=== PATIENT | female | born 1970 | race Caucasian/White ===

== ENCOUNTER 2019-07-02 15:39 | Observation (INO) | payer BC ==
[~2019-07-02] VITALS: Ht 165.1 cm; Wt 97.5 kg
[2019-07-02] MEDS ORDERED: SODIUM CHLORIDE 0.9% 1000ML 1,000 ML IV STA (16:25)
[2019-07-02] MEDS ORDERED: HYDRALAZINE HCL 20 MG/ML VIAL IV NR ×2 (17:00→19:30)
--- NOTE | 2019-07-02 17:41 | Diagnostic Imaging Report ---
EXAMINATION: Head CT HISTORY: Headache, hypertension COMPARISON: None. TECHNIQUE: Multidetector axial images were obtained without contrast from the foramen magnum to the vertex . The images were reconstructed using brain and bone algorithms. Thin section brain images were reformatted into coronal and sagittal planes. Image quality: Motion/streaking artifact limits the evaluation of the skull base and posterior cranial fossa. Dose modulation, iterative reconstruction, and/or weight based adjustment of the mA/kV was utilized to reduce the radiation dose to as low as reasonably achievable. FINDINGS: Parenchyma: 1. No abnormal densities. 2. No mass or hemorrhage. No CT evidence of acute territorial vascular insult. Extra-axial spaces:No abnormal density. No extra-axial fluid collections Brain volume: Normal for age. Ventricles: No hydrocephalus or displacement. Arteries: No density suggestive of thrombus. Dural sinuses: No abnormal density. Extra-axial spaces: No abnormal density. Foramen magnum: No mass, Chiari malformation, or basilar invagination. Sella: No obvious mass. Paranasal/mastoid sinuses: Partially visualize partial opacification of the left greater than right maxillary sinuses and minimal mucosal thickening of the left sinus. Skull/Scalp: No lytic or blastic lesions. No fractures. IMPRESSION: No intracranial abnormality, particularly no hemorrhage. Partially visualized partial opacification of the paranasal sinuses sinuses. Signed by: Dr. Bel Puri M.D. on 07/02/2019 5:38 PM
--- NOTE | 2019-07-02 17:45 | Diagnostic Imaging Report ---
EXAMINATION: CHEST SINGLE (PORTABLE) INDICATION: ^ERMD ORDER ^[id number] ^1655 ^Y COMPARISON: None FINDINGS: AP view TUBES and LINES: None. LUNGS: Lungs are well inflated. Lungs are clear. There is no evidence of pneumonia or pulmonary edema. PLEURA: No pleural effusion or pneumothorax. HEART AND MEDIASTINUM: The cardiomediastinal silhouette is unremarkable.. BONES AND SOFT TISSUES: No acute osseous lesion. Soft tissues are unremarkable. UPPER ABDOMEN: No free air under the diaphragm. IMPRESSION: No acute thoracic abnormality. Signed by: Dr. Shreya rAce M.D. on 07/02/2019 5:41 PM
[2019-07-02 18:07] LABS: BASOPHILS % 0.5 % (0.0-1.0); EOSINOPHILS # (AUTO) 0.1 (0.0-0.4); EOSINOPHILS % 1.7 % (0.0-6.0); HEMATOCRIT 39.8 % (34.2-44.1); HEMOGLOBIN 12.8 g/dL (12.0-16.0); LYMPHOCYTES # (AUTO) 1.3 (1.0-3.2); LYMPHOCYTES % 19.6 % (18.0-39.1); MEAN CORPUSCULAR HEMOGLOBIN 27.8 pg (28-32); MEAN CORPUSCULAR HGB CONC 32.2 g/dL (31-35); MEAN CORPUSCULAR VOLUME 86.5 fL (81-99); MONOCYTES # (AUTO) 0.8 (0.2-0.8); MONOCYTES % 12.6 % (4.4-11.3); NEUTROPHILS # (AUTO) 4.2 (2.1-6.9); NEUTROPHILS % 65.3 % (38.7-80.0); PLATELET COUNT 248 x10e3/uL (140-360); RED CELL DISTRIBUTION WIDTH 14.9 % (11.7-14.4)
[2019-07-02 18:27] LABS: CLARITY,URINE CLEAR (CLEAR); COLOR,URINE YELLOW (YELLOW)
[2019-07-02 18:28] LABS: BILIRUBIN,URINE NEGATIVE (NEGATIVE); KETONES,URINE NEGATIVE (NEGATIVE); LEUKOCYTE ESTERASE ,URINE NEGATIVE (NEGATIVE); NITRITE,URINE NEGATIVE (NEGATIVE); PROTEIN,URINE DIPSTICK NEGATIVE (NEGATIVE); URINE UROBILINOGEN 0.2 mg/dL (0.2 - 1)
[2019-07-02 18:35] LABS: BACTERIA,URINE FEW /HPF; EPITHELIAL CELLS,URINE FEW /LPF; WBC,URINE (MAN) 0-5 /HPF (0-5)
[2019-07-02 18:56] LABS: ALANINE AMINOTRANSFERASE 14 IU/L (0-55); ALBUMIN 3.6 g/dL (3.5-5.0); ALKALINE PHOSPHATASE 97 IU/L (40-150); ANION GAP 16.5 mmol/L (8-16); BLOOD UREA NITROGEN 11 mg/dL (7-26); BUN/CREATININE RATIO 13 (6-25); CALCIUM 9.6 mg/dL (8.4-10.2); CARBON DIOXIDE 23 mmol/L (22-29); CHLORIDE 102 mmol/L (98-107); CREATINE KINASE 62 IU/L (29-168); CREATININE, SERUM 0.82 mg/dL (0.57-1.11); EST GLOMERULAR FILTRATION RATE > 60 ML/MIN (60-); GLUCOSE 94 mg/dL (74-118); POTASSIUM 3.5 mmol/L (3.5-5.1); SODIUM 138 mmol/L (136-145)
[2019-07-02] MEDS ORDERED: HYDRALAZINE HCL 20 MG/ML VIAL IV PRN (19:30)
[2019-07-02] MEDS: NIFEDIPINE CR 30 MG TAB PO SCH (20:39)
--- NOTE | 2019-07-02 21:10 | NUR ---
SPOKE TO DR. GOMEZ REGARDING PTS STATUS/POC; NEW ORDERS RECEIVED AND ENTERED INTO [facility]
[2019-07-02] MEDS ORDERED: ONDANSETRON HCL INJ 2MG/ML 2ML 2 MG/ML VIAL IV PRN (21:30)
[2019-07-02] MEDS ORDERED: LORAZEPAM 0.5 MG TAB PO PRN (21:30)
[2019-07-02 21:40] VITALS: BP 182/89
--- NOTE | 2019-07-02 21:40 | NUR ---
patient received to room 292 via wheelchair from the emergency room at this time. bp182/89 hr 82 rr 18. patient was medicated for elevated bp in emergency room prior to coming to her room. patient states, " I just took my xanax (home medication) for my anxiety. " patient will go for stat cta chest per orders to r/o PE. patient/ made aware of this. admit assessment/history complete. remains at patients bedside. patient/ instructed to call for assistance when needed.
[2019-07-02 21:55] VITALS: BP 182/89
--- NOTE | 2019-07-02 22:25 | NUR ---
patient out of room for cta chest r/o PE at this time.
[2019-07-02] MEDS: ACETAMINOPHEN 325 MG TAB PO PRN (22:43)
--- NOTE | 2019-07-02 22:43 | NUR ---
patient returned to room from cta chest. patient medicated with tylenol 650mg po for c/o headache 11/26 at this time.
--- NOTE | 2019-07-02 23:15 | Diagnostic Imaging Report ---
EXAM: CTA Chest WITH contrast 07/02/2019 9:17 PM INDICATION: Chest pain COMPARISON: None TECHNIQUE: Chest was scanned utilizing a multidetector helical scanner from the lung apex through the level of the adrenal glands with administration of IV contrast. Coronal and sagittal reformations were obtained. Pulmonary embolism protocol was performed with attention on the pulmonary arteries. IV CONTRAST: 100 mL of Omnipaque 300 COMPLICATIONS: None RADIATION DOSE: Total DLP: 656 mGy*cm Estimated effective dose: (DLP x 0.014 x size factor) mSv CTDIvol has been reviewed. It is below the limits set by the Radiation Protocol Committee (RPC). Dose modulation, iterative reconstruction, and/or weight based adjustment of the mA/kV was utilized to reduce the radiation dose to as low as reasonably achievable. FINDINGS: LINES/ TUBES: None. LUNGS AND AIRWAYS: Mild biapical paraseptal emphysema. The lungs are unremarkable. Airways are normal. PLEURA: The pleural spaces are clear. HEART AND MEDIASTINUM: The thyroid gland is normal. No mediastinal, hilar or axillary lymphadenopathy. The heart is normal in size. There is no pericardial effusion. The main pulmonary artery measures 2.7 cm in diameter, nondilated, and the ascending thoracic aorta measures 3.1 cm in diameter, nondilated. UPPER ABDOMEN: Calcified gallstone within the gallbladder lumen. The gallbladder gallbladder is not overly distended, no pericholecystic fat stranding or wall thickening. Mildly thickened adrenal glands with subtle surrounding fat stranding (series 401 image 71, series 400 image 90). BONES: The visualized bony thorax is within normal limits. Enthesopathic reactive changes in the left greater tuberosity. SOFT TISSUES: Unremarkable. IMPRESSION: Mildly thickened adrenal glands with subtle surrounding fat stranding can be seen in setting of adrenal hemorrhage. Cholelithiasis without acute obstructive cholecystitis. No pulmonary embolism. Signed by: Jake Gillette DO on 07/02/2019 11:11 PM
[2019-07-02 23:19] VITALS: BP 188/91
[2019-07-02] MEDS ORDERED: XANAX0.5 MG PO (23:46)
[2019-07-02] MEDS ORDERED: CARVEDILOL3.125 MG PO (23:46)
[2019-07-02] MEDS ORDERED: TERBINAFINE HC250 MG PO (23:46)
[2019-07-02] MEDS ORDERED: SIMVASTATIN20 MG PO (23:46)
--- NOTE | 2019-07-03 02:30 | NUR ---
second set of cardiac markers collected and sent to lab at this time.
[2019-07-03] MEDS ORDERED: IOPAMIDOL 370 MG/ML 200 ML INFUS..BTL INJ ONE (03:31)
[2019-07-03] MEDS ORDERED: SODIUM CHLORIDE 0.9% 50ML 50 ML ONE (03:31)
[2019-07-03 03:41] LABS: CREATINE KINASE MB 2.3 ng/mL (0-5.0)
[2019-07-03 04:40] VITALS: BP 169/81
[2019-07-03] MEDS: ACETAMINOPHEN 325 MG TAB PO PRN (05:30)
--- NOTE | 2019-07-03 05:30 | NUR ---
bp 169/81 this am. attempted to give patient hydralazine 10mg ivp for elevated bp per orders but patient refuses. patient states, "no i don't want that stuff because it makes me feel really bad. " patient medicated with tylenol 650mg po for c/o headache 11/26.
[2019-07-03 06:35] LABS: BASOPHILS % 0.3 % (0.0-1.0); EOSINOPHILS % 0.4 % (0.0-6.0); HEMATOCRIT 38.5 % (34.2-44.1); HEMOGLOBIN 12.4 g/dL (12.0-16.0); LYMPHOCYTES # (AUTO) 1.2 (1.0-3.2); LYMPHOCYTES % 14.4 % (18.0-39.1); MEAN CORPUSCULAR HEMOGLOBIN 27.6 pg (28-32); MEAN CORPUSCULAR HGB CONC 32.2 g/dL (31-35); MEAN CORPUSCULAR VOLUME 85.6 fL (81-99); MONOCYTES % 11.9 % (4.4-11.3); NEUTROPHILS # (AUTO) 5.8 (2.1-6.9); NEUTROPHILS % 72.6 % (38.7-80.0); PLATELET COUNT 263 x10e3/uL (140-360); RED CELL DISTRIBUTION WIDTH 14.8 % (11.7-14.4)
[2019-07-03 07:15] VITALS: BP 157/82
--- NOTE | 2019-07-03 07:15 | NUR ---
PATIENT BIN BD RESTING WITH NO S/S OF DISTRESS. DENIED PAIN AT THIS TIME. CALL LIGHT AT REACH.
[2019-07-03 08:20] LABS: ALANINE AMINOTRANSFERASE 12 IU/L (0-55); ALBUMIN 3.4 g/dL (3.5-5.0); ALKALINE PHOSPHATASE 88 IU/L (40-150); ANION GAP 13.6 mmol/L (8-16); BLOOD UREA NITROGEN 7 mg/dL (7-26); BUN/CREATININE RATIO 9 (6-25); CALCIUM 9.1 mg/dL (8.4-10.2); CARBON DIOXIDE 23 mmol/L (22-29); CHLORIDE 100 mmol/L (98-107); CREATININE, SERUM 0.74 mg/dL (0.57-1.11); EST GLOMERULAR FILTRATION RATE > 60 ML/MIN (60-); GLUCOSE 112 mg/dL (74-118); POTASSIUM 3.6 mmol/L (3.5-5.1); SODIUM 133 mmol/L (136-145)
[2019-07-03 08:23] VITALS: BP 157/82
[2019-07-03] MEDS: NIFEDIPINE CR 30 MG TAB PO SCH (09:20)
[2019-07-03] MEDS: HYDROCODONE/APAP 5MG-325MG TAB PO PRN ×2 (11:00→21:00)
--- NOTE | 2019-07-03 11:10 | NUR ---
PATIENT C/O GENERALIZED PAIN, MEDICATED ORDERED. WILL CONTINUE TO MONITOR.
[2019-07-03 11:59] LABS: CREATINE KINASE MB 1.7 ng/mL (0-5.0)
[2019-07-03 12:08] VITALS: BP 170/96
[2019-07-03] MEDS: CEFDINIR 300 MG CAP PO SCH (13:14)
--- NOTE | 2019-07-03 15:22 | NUR ---
MD IN TO SEE PATIENT, NEW ORDER RECEIVED.
[2019-07-03 17:27] VITALS: BP 160/83
--- NOTE | 2019-07-03 19:02 | History and Physical ---
CHIEF COMPLAINT: Elevated blood pressure, headaches. HISTORY OF PRESENT ILLNESS: A 49-year-old female, morbidly obese, history of hypertension, and hyperlipidemia, came into the emergency room yesterday with complaints of underlying headaches, dizziness, and elevated blood pressure readings that she noted at home. The patient reports that she has noticed her blood pressure has been elevated for the last several weeks. Of note, she recently went to her primary care physician and was told that her blood pressure was elevated due to recent sickness, but was not prescribed any kind of antihypertensive medications. Of note, several days ago, she noticed her blood pressure is still extremely high even at the local [facility] and she notified her primary care physician and was sent in a prescription for Coreg 6.25 mg twice daily. Despite taking the Coreg, the patient continues to have still elevated blood pressure readings and headaches. The patient came into the ED for further evaluation and management. The patient also reported having some chest pressure in which she described it more pressure. No radiation to the left shoulder or arm. No associated nausea or vomiting. She has never experienced anything like this before. She has never seen a therapist respiratory in the past. The patient was seen and evaluated at bedside on the medical floor. She is currently doing much better after given nifedipine XL last night with much improved blood pressure readings. Ativan was given p.r.n. for anxiety. REVIEW OF SYSTEMS: Pertinent positives: Lightheadedness, dizziness, headaches, elevated blood pressure readings, and chest pain. Pertinent negatives: Denies any palpitation, nausea, vomiting, diarrhea, dysuria, hematuria, frequency, urgency, abdominal pain, shortness of breath, cough, congestion, fever, or any other complaints. The rest of the 14-point review of systems are reviewed with the patient and are negative. ALLERGIES: TO PENICILLINS AND SULFA. HOME MEDICATIONS: Xanax 0.5 mg p.o. b.i.d. p.r.n. for anxiety, Coreg 6.25 mg p.o. b.i.d., simvastatin 20 mg at bedtime, and terbinafine 250 mg daily. PAST MEDICAL HISTORY: Hypertension, hyperlipidemia, and anxiety. PAST SURGICAL HISTORY: Reports none. FAMILY HISTORY: Hypertension and diabetes. SOCIAL HISTORY: No drugs. No alcohol. Does not smoke. Good social support. PHYSICAL EXAMINATION: VITAL SIGNS: Temperature is 97.6, pulse 82, respiratory rate is 22, blood pressure is 170/96, and pulse ox 96% on room air. GENERAL: Not in acute distress. Alert and oriented x3. Cooperative on examination. HEENT: Head; normocephalic, atraumatic. Eyes; pupils are equal, round, and reactive to light bilaterally. Extraocular movements intact bilaterally. Throat; no evidence of erythema or exudates in the posterior pharynx. Has poor dentition. NECK: Supple. Good range of motion. PULMONARY: Clear to auscultation bilaterally. No wheezing, no rales, no rhonchi, no crackles appreciated. CARDIOVASCULAR: Positive S1 and S2. No murmurs, rubs, or gallops appreciated. ABDOMEN: Soft, nondistended, and nontender to palpation. Bowel sounds present. MUSCULOSKELETAL: Strength is 5/5 throughout. No evidence of any muscle deficits on examination. No weakness appreciated. NEUROLOGIC: Cranial nerves II through XII grossly intact. No evidence of any neurological deficits on exam. SKIN: Intact. Warm to touch. Good cap refill. PSYCHIATRIC: Normal affect and mood. EXTREMITIES: No edema. Good range of motion throughout. LABORATORY DATA: Labs show white count 7.9, hemoglobin 12.4, hematocrit is 38.5, and platelets of 263. Chemistry; sodium 133, potassium 3.6, chloride 100, bicarb 23, anion gap of 13, BUN 7, creatinine is 0.74, glucose is 112, and calcium 9.1. AST was 12, ALT 12, and total bilirubin was 0.4. Troponins were negative. BNP 224. Albumin 3.4. Urinalysis negative. MICROBIOLOGY: None. IMAGING STUDIES: Chest x-ray was negative. CT brain, no acute intracranial abnormality. Particularly, no hemorrhage. Chest CTA shows impression, some cholelithiasis without acute obstructive cholecystitis. No pulmonary embolism. IMPRESSION: 1. Hypertension urgency. 2. Headache and dizziness secondary to #1, now improved. 3. Acute sinusitis. 4. Chest pain, likely atypical in nature. PLAN: At this time, the patient was initiated on nifedipine XL 30 mg daily since last night. Her blood pressure seems to have improved. We will adjust her medications accordingly. She already called the pharmacy. Apparently, she cannot afford nifedipine XL. As for her chest pain, troponins have been reviewed and trended found to be negative. Cardiology will come and evaluate her. Her CT imaging is consistent with acute sinusitis in which we will go ahead and start with Augmentin 875 mg p.o. b.i.d. We will go ahead and get labs, lipid panel, A1c, TSH as well. Get a.m. labs with CBC and a chemistry. Lovenox for DVT prophylaxis and encourage ambulation with a heart healthy diet. MD KAMALJIT Jameson/DARSHANA /[id number]
--- NOTE | 2019-07-03 19:22 | Consultation ---
DATE OF CONSULTATION: 07/03/2019 Cardiology Consultation INDICATION: Hypertensive urgency. HISTORY OF PRESENT ILLNESS: Ms. Díaz is a 49-year-old female, who has large amounts of stress stemming from two jobs as well as smoking and drinking, comes in with blood pressure in excess of 180. She recently saw her primary care physician, Dr. Raquel Hernandez. She was prescribed hypertensive medications; however, her blood pressure remained elevated. She comes into the emergency room. Cardiac enzymes, labs are normal. EKG is normal. CT scan of the brain and chest was normal. She is admitted for observation. Blood pressure currently is 170/96, as low as 157/82. PAST MEDICAL HISTORY: None. ALLERGIES: DRUG ALLERGIES, PENICILLIN, SULFONAMIDES. SOCIAL HISTORY: The patient is a online publisher, part-time, drinks as well as smokes. REVIEW OF SYSTEMS: Negative except as dictated in the history of present illness. PHYSICAL EXAMINATION: VITAL SIGNS: Afebrile. Heart rate 78, blood pressure is 178/70. CARDIOVASCULAR: Regular rhythm. No S4 gallop. No murmurs. LUNGS: Clear to auscultation bilaterally. ABDOMEN: Soft. Bowel sounds are adequate. EXTREMITIES: No edema. LABORATORY DATA: Hemoglobin 12.4. Cardiac enzymes are negative. BNP is 224. Serum creatinine is normal. ASSESSMENT: Hypertensive urgency. RECOMMENDATIONS: Further workup in the office. Antihypertensive medication prescribed to the patient. Smoking cessation, alcohol limitation also recommended. We will follow her closely in the office. I thank, Dr. Bauer, for this consultation. MD REJI Ceballos/DARSHANA /[id number]
[2019-07-03 20:00] VITALS: BP 149/86
--- NOTE | 2019-07-03 20:00 | NUR ---
INITIAL ASSESSMENT COMPLETE, PT IN BED, NO DISTRESS NOTED, VS STABLE, C/O SLIGHT HEADACHE, CALL LIGHT IN REACH, TELE ON PT, TOLD TO CALL FOR NEEDS
[2019-07-03] MEDS ORDERED: AMOXICILLIN/CLAVULANATE K 875 MG TAB PO SCH (21:00)
[2019-07-03] MEDS ORDERED: MELATONIN 5 MG TABLET PO SCH (21:00)
[2019-07-04] VITALS: BP 148/74
[2019-07-04] MEDS: CEFDINIR 300 MG CAP PO SCH (00:12)
[2019-07-04 04:00] VITALS: BP 145/81
--- NOTE | 2019-07-04 06:14 | NUR ---
pt awake easily for vs, vs stable, call light in reach, no distress noted, told to call for needs
[2019-07-04 06:25] LABS: BASOPHILS % 0.4 % (0.0-1.0); EOSINOPHILS # (AUTO) 0.1 (0.0-0.4); HEMATOCRIT 39.9 % (34.2-44.1); HEMOGLOBIN 12.5 g/dL (12.0-16.0); LYMPHOCYTES # (AUTO) 1.5 (1.0-3.2); LYMPHOCYTES % 27.2 % (18.0-39.1); MEAN CORPUSCULAR HEMOGLOBIN 27.2 pg (28-32); MEAN CORPUSCULAR HGB CONC 31.3 g/dL (31-35); MEAN CORPUSCULAR VOLUME 86.9 fL (81-99); MONOCYTES # (AUTO) 0.8 (0.2-0.8); MONOCYTES % 15.1 % (4.4-11.3); NEUTROPHILS % 55.1 % (38.7-80.0); PLATELET COUNT 267 x10e3/uL (140-360); RED BLOOD COUNT 4.59 x10e6/uL (3.6-5.1)
[2019-07-04 06:40] LABS: ANION GAP 14.3 mmol/L (8-16); BLOOD UREA NITROGEN 12 mg/dL (7-26); BUN/CREATININE RATIO 15 (6-25); CALCIUM 9.2 mg/dL (8.4-10.2); CARBON DIOXIDE 22 mmol/L (22-29); CHLORIDE 104 mmol/L (98-107); CREATININE, SERUM 0.79 mg/dL (0.57-1.11); EST GLOMERULAR FILTRATION RATE > 60 ML/MIN (60-); GLUCOSE 97 mg/dL (74-118); POTASSIUM 3.3 mmol/L (3.5-5.1); SODIUM 137 mmol/L (136-145)
[2019-07-04 07:35] VITALS: BP 157/91
[2019-07-04 08:03] VITALS: BP 159/91
[2019-07-04] MEDS: NIFEDIPINE CR 30 MG TAB PO SCH (09:05)
--- NOTE | 2019-07-04 09:05 | NUR ---
PT UP IN BED C/O ANXIETY MEDICATED,DENIES CHEST PAIN
[2019-07-04 09:44] LABS: CHOL/HDL RATIO 3.6 (3.0-3.6); CHOLESTEROL 182 MD/DL (0-199); HDL CHOLESTEROL 50 MG/DL (40-60); LDL CHOLESTEROL 98 MG/DL (60-130); TRIGLYCERIDES 170 MG/DL (0-149)
[2019-07-04 10:04] LABS: THYROID STIMULATING HORMONE 3.008 uIU/mL (0.350-4.940)
[2019-07-04 12:05] VITALS: BP 124/57
[2019-07-04 12:07] VITALS: BP 154/70
[2019-07-04] MEDS ORDERED: POTASSIUM CHLORIDE 20 MEQ TAB CR PO NR (13:30)
--- NOTE | 2019-07-04 14:01 | NUR ---
PT DISCHARGED HOME IV DCD WITHOUT REDNESS OR SWELLING,TRANSPORTED TO [facility] VIA W/C
--- NOTE | 2019-07-05 06:35 | Discharge Summary ---
FINAL DISCHARGE DIAGNOSES: 1. Hypertension urgency, now resolved. 2. Atypical chest pain. 3. Headaches and dizziness, now resolved. 4. Acute sinusitis. CONSULTANTS: Cardiology. VITAL SIGNS: Temperature 97.8, pulse 71, respiratory rate is 18, blood pressure 154/70, pulse ox is 96% on room air. On admission, her blood pressure systolic was 205/105, now 154/70. LABORATORY DATA: Labs show white count was 5.3, hemoglobin 12.5, hematocrit 39, and platelets of 267. Chemistry: Sodium 137, potassium 3.3, chloride 104, bicarbonate 22, anion gap of 14, BUN 12, and creatinine 0.79. Hemoglobin A1c 5.2, calcium 9.2, and glucose 97. Troponins were all negative. Albumin was 3.4. LDL was 98. TSH was 3. Triglycerides was 170. Urinalysis was negative. IMAGING STUDIES: 2D echo shows an EF of 55%. Chest x-ray was found to be negative. CT brain was negative except shows some opacification in the paranasal sinuses for which she was started on oral antibiotics. CT chest was negative for pulmonary embolism. HOSPITAL COURSE: A 49-year-old female, known history of hypertension very uncontrolled. Reportedly came in with complaints of dizziness and chest pain. The patient was admitted under observation and Cardiology was consulted. Cardiac enzymes were found to be negative. A 2D echo shows an EF of 55%. No alarms on cardiac telemetry. The patient was cleared for discharge by Cardiology with outpatient followup today in the Cardiology office for further management and care. The patient was cleared for discharge by Cardiology. As for her blood pressure, the patient was started on nifedipine XL 30 mg while here with systolic blood pressure on discharge of 154/70. On admission, the patient's systolic blood pressure was 205/105, but improved after initiation of nifedipine XL. She was advised to discontinue her Coreg upon discharge that she is taking at home. While here, the patient's dizziness and headaches all resolved. CT brain was found to be negative. No further workup was needed by the consultants and was cleared for discharge to home. On discharge, the patient was doing well back to normal baseline with no complaints. On the day of discharge, vital signs were stable, labs reviewed and stable. The patient seen and evaluated, examined thoroughly on the day of discharge with no other complaints. The patient verbalized understanding and agrees to plan of care and to follow up as an outpatient with PCP in 1 week and ship yard electrical person later today on 07/04/2019, for further management and care as an outpatient that was recommended by ship yard electrical person. The patient was found to have some sinusitis seen on CT of the brain in which she was started on oral Omnicef. She was discharged on oral Omnicef as well for acute sinusitis. MEDICATIONS: See med reconciliation form. DISPOSITION: Home. CONDITION: Stable. DIET: Heart healthy. DISCHARGE INSTRUCTIONS: In the event of any worsening symptoms, the patient was advised to come back to the ED for further evaluation. TIME SPENT: Discharge summary took greater than 35 minutes. MD KAMALJIT Jameson/DARSHANA /[id number]
--- OUTSIDE RECORDS SUMMARY | 2019-07-08 12:08 | XMS REPORT ---
Author Author [facility] Address Unknown Phone Unavailable Care Team Providers [employer] Name Role Phone Reji GOMEZ Unavailable Unavailable Problems This patient has no known problems. Allergies, Adverse Reactions, Alerts This patient has no known allergies or adverse reactions. Medications This patient has no known medications. Results Test Description Test Time Test Comments Text Results Atomic Results Result Comments CT CHEST W 2019-07-02 23:00:00 [place] [id number] [place] [address] Patient Name: SHANTAL ASKEW MR #: [id number] : 1970 Age/Sex: 49/F Req #: [id number] Adm Physician: RAJEEV GOMEZ MD Ordered by: RAJEEV GOMEZ MD Report #: [id number] [facility]: [facility] Room/Bed: [facility] Procedure: [id number] CT/CT CHEST W Exam Date: Exam Time: REPORT STATUS: Signed EXAM: CTA Chest WITH contrast 07/02/2019 9:17 PM INDICATION: Chest pain COMPARISON: None TECHNIQUE: Chest was scanned utilizing a multidetector helical scanner from the lung apex through the level of the adrenal glands with administration of IV contrast. Coronal and sagittal reformations were obtained. Pulmonary embolism protocol was performed with attention on the pulmonary arteries. IV CONTRAST: 100 mL of Omnipaque 300 COMPLICATIONS: None RADIATION DOSE: Total DLP: 656 mGy*cm Estimated effective dose: (DLP x 0.014 x size factor) mSv CTDIvol has been reviewed. It is below the limits set by the Radiation Protocol Committee (RPC). Dose modulation, iterative reconstruction, and/or weight based adjustment of the mA/kV was utilized to reduce the radiation dose to as low as reasonably achievable. FINDINGS: LINES/ TUBES: None. LUNGS AND AIRWAYS: Mild biapical paraseptal emphysema. The lungs are unremarkable. Airways are normal. PLEURA: The pleural spaces are clear. HEART AND ME DIASTINUM: The thyroid gland is normal. No mediastinal, hilar or axillary lymphadenopathy. The heart is normal in size. There is no pericardial effusion. The main pulmonary artery measures 2.7 cm in diameter, nondilated, and the ascending thoracic aorta measures 3.1 cm in diameter, nondilated. UPPER ABDOMEN: Calcified gallstone within the gallbladder lumen. The gallbladder gallbladder is not overly distended, no pericholecystic fat stranding or wall thickening. Mildly thickened adrenal glands with subtle surrounding fat stranding (series 401 image 71, series 400 image 90). BONES: The visualized bony thorax is within normal limits. Enthesopathic reactive changes in the left greater tuberosity. SOFT TISSUES: Unremarkable. IMPRESSION: Mildly thickened adrenal glands with subtle surrounding fat stranding can be seen in setting of adrenal hemorrhage. Cholelithiasis without acute obstructive cholecystitis. No pulmonary embolism. Signed by: Jake Gillette DO on 07/02/2019 11:11 PM Dictated By: JAKE GILLETTE DO 10 Transcribed By: IVETH on 07/02/192310 COPY TO: RAJEEV GOMEZ MD CHEST SINGLE (PORTABLE) 2019-07-02 17:41:00 [place] [address] Patient Name: SHANTAL ASKEW MR #: [id number] : 1970 Age/Sex: 49/F Req #: [id number] Adm Physician: Ordered by: MARGARET ALICIA DO Report #: [id number] Location: ER Room/Bed: Procedure: [id number] DX/CHEST SINGLE (PORTABLE) Exam Date: 07/02/19 Exam Time: 1654 REPORT STATUS: Signed EXAMINATION: CHEST SINGLE (PORTABLE) INDICATI ON: ERMD ORDER [id number] 1654 Y COMPARISON: None FINDINGS: AP view TUBES and LINES: None. LUNGS: Lungs are well inflated. Lungs are clear. There is no evidence of pneumonia or pulmonary edema. PLEURA: No pleural effusion or pneumothorax. HEART AND MEDIASTINUM: The cardiomediastinal silhouette is unremarkable.. BONES AND SOFT TISSUES: No acute osseous lesion. Soft tissues are unremarkable. UPPER ABDOMEN: No free air under the diaphragm. IMPRESSION: No acute thoracic abnormality. Signed by: Dr. Marcin Fleming M.D. on 07/02/2019 5:41 PM Dictated By: MARCIN FLEMING MD 40 Transcribed By: IVETH on 07/02/191740 COPY TO: MARGARET ALICIA DO CT BRAIN WO 2019-07-02 17:32:00 [place] [address] Patient Name: SHANTAL ASKWE MR #: [id number] : 1970 Age/Sex: 49/F Req #: [id number] Adm Physician: Ordered by: MARGARET ALICIA DO Report #: [id number] Location: ER Room/Bed: Procedure: [id number] CT/CT BRAIN WO Exam Date: 07/02/19 Exam Time: 1650 REPORT STATUS: Signed EXAMINATION: Head CT HISTORY: Headache, hypertension COMPARISON: None. TECHNIQUE: Multidetector axial images were obtained without contrast from the foramen magnum to the vertex . The images were reconstructed using brain and bone algorithms. Thin section brain images were reformatted into coronal and sagittal planes. Image quality: Motion/streaking artifact limits the evaluation of the skull base and posterior cranial fossa. Dose modulation, iterative reconstruction, and/or weight based adjustment of the mA/kV was utilized to reduce the radiation dose to as low as reasonably achievable. FINDINGS: Parenchyma: 1. No abnormal densities. 2. No mass or hemorrhage. No CT evidence of acute territorial vascular insult. Extra-axial spaces:No abnormal density. No extra-axial fluid collections Brain volume: Normal for age. Ventricles: No hydrocephalus or displacement. Arteries: No density suggestive of thrombus. Dural sinuses: No abnormal density. Extra-axial spaces: No abnormal density. Foramen magnum: No mass, Chiari malformation, or basilar invagination. Sella: No obvious mass. Paranasal/mastoid sinuses: Partially visualize partial opacification of the left greater than right maxillary sinuses and minimal mucosal thickening of the left sinus. Skull/Scalp: No lytic or blastic lesions. No fractures. IMPRESSION: No intracranial abnormality, particularly no hemorrhage. Partially visualized partial opacification of the paranasal sinuses sinuses. Signed by: Dr. Jyotsna Puri M.D. on 07/02/2019 5:38 PM Dictated By: JYOTSNA PURI MD 1738 Transcribed By: IVETH on 07/02/191737 COPY TO: MARGARET ALICIA DO
== END 2019-07-04 14:01 | disposition home or self-care (01) ==
LOC: ER 15:39 → ERHOLD 19:38 → MED/SURG3 21:01
PROVIDERS: ADMIT Internal Medicine; ATTEND Internal Medicine
DX: I16.0 Hypertensive urgency (principal); R07.89 Other chest pain; J01.90 Acute sinusitis, unspecified; R51 Headache
CPT/HCPCS: 36415 ×3; 70450; 71045; 71260; 80048; 80053 ×2; 80061; 81001; 82550 ×2; 82553 ×2; 83036; 83880; 84443; 84484 ×2; 85025 ×3; 93005; 93306; 99284; G0378 ×3; J0360 ×2; J7030; Q9967